=== PATIENT | male | born 1990 | race Caucasian/White ===

== ENCOUNTER 2020-09-17 15:21 | Emergency (ER) | payer BC, SELFPAY ==
[2020-09-17 15:23] VITALS: BP 150/88; PULSE 111; RESP 16; TEMP 36.8; O2SAT 97; BMI 26.6
[2020-09-17 15:25] VITALS: BP 150/88; PULSE 111; RESP 16; TEMP 36.8; O2SAT 97
--- NOTE | 2020-09-17 16:07 | EX.ED.DYSGE1 ---
HPI History of Present Illness Chief Complaint: Abscess Informant: patient Narrative Narrative: Patient presents with an abscess of the right third finger. Patient states that 7 days ago he had a small bump near the long fingers volar aspect of the right He states he went to urgent care and was placed on Keflex. In the past couple days DIP joint. it has swollen significantly turned white with some surrounding erythema. He does not believe he would have had any foreign bodies there. He does not recall any type of work that would have resulted in a foreign body. He denies any significant medical problems. PFSH PFSH no medical history Home Medications cephalexin [Keflex] 500 mg PO TID 09/17/20 [History Last Taken Unknown] hydrocodone-acetaminophen 1 tab PO Q6H PRN PRN 3 Days #12 tablet 09/17/20 [Rx Last Taken Unknown] sulfamethoxazole-trimethoprim 1 tab PO BID #14 tablet 09/17/20 [Rx Last Taken Unknown] Allergy/AdvReac Type Severity Reaction Status Date / Time No Known Allergies Allergy Verified 09/17/20 15:22 no significant family history Surgical History History of appendectomy History of hernia repair Social History (Updated 09/17/20 @ 16:[address] Jarocho Yoo DO) Smoking Status: Light Smoker (<10/day) substance use type: does not use ROS ROS ED Constitutional Constitutional ED: Denies chills or weight loss Eyes Eyes: Denies change in vision or diplopia ENT ENT ED: Denies ear pain, rhinorrhea or sore throat Cardiovascular Cardiovascular: Denies chest pain, orthopnea, palpitations or racing heartbeat Respiratory/Chest Respiratory/Chest: Denies cough, dyspnea or orthopnea Gastrointestinal Gastrointestinal: Denies abdominal pain, diarrhea, nausea or vomiting Genitourinary Genitourinary ED: Denies dysuria, hematuria or urinary frequency Musculoskeletal Musculoskeletal: Denies arthralgias or myalgias Integumentary Reports abscess; Denies rash Neurologic Neurologic: Denies headache(s) or weakness Psychiatric Psychiatric: Denies anxiety, depression, suicidal ideation or suicidal thoughts Endocrine Endocrinology: Denies polydipsia, polyphagia or polyuria Allergic/Immunologic Allergic/Immunologic ED: Denies mouth swelling, tongue swelling or urticaria EXAM Physical Exam Const Vital Signs: 09/17/20 15:23 09/17/20 15:25 Temperature 98.2 F 98.2 F Temperature Source Temporal Temporal Pulse Rate 111 H 111 H Respiratory Rate 16 16 Blood Pressure 150/88 H 150/88 H Blood Pressure Mean 108 108 Pulse Ox 97 97 Oxygen Delivery Method Room Air Room Air Positive well nourished and well developed General Appearance ED: well developed HEENT Reports normocephalic, head/scalp atraumatic and moist mucous membranes Eyes PERRL and EOMs intact bilaterally Neck no lymphadenopathy, supple and no JVD Resp normal respiratory effort and clear to auscultation bilaterally Cardio regular rate, regular rhythm and no murmurs GI normal to inspection, nondistended, normoactive bowel sounds and non-tender Palpation: soft Back/Spine no CVA tenderness and normal ROM Extremity normal to inspection General Extremety ED: Negative for edema General Extremity: Negative for edema Neuro oriented x3 and CN's II-XII intact bilaterally Sensorium / Orientation: alert Motor Exam: strength 5/5 throughout Psych mental status grossly normal Mood & Affect: Negative for depressed or tearful Skin no rashes or lesions noted and no wounds Skin Narrative: Along the volar aspect of the right long fingers distal phalanx is a abscess measuring approximately 1 cm with minimal surrounding erythema the distal tip of the finger appears normal and the fat pad distally appears normal. On the dorsum the skin appears normal. There is no lymphangitic streaking. There is not any evidence of tenosynovitis. NVI Distally. MDM MDM MDM Narrative Medical decision making narrative: Patient underwent digital block using 1% lidocaine. After adequate anesthesia the abscess was washed with Betadine and allowed to dry. A cruciate incision was made over it with a large amount of pus expressed. This was sent for culture. After irrigating the wound with 200 cc of normal saline, a hard green ball approximately 2 to 3 mm wide was expressed from the wound. This was dissected and no obvious foreign body was seen but it was rather firm that needed to be cut with an 11 blade. Wound to be cleansed and dressed by nursing. I made to place him on Bactrim as well as Kennedy. He will follow up with orthopedics. Procedures Other Procedures Procedure(s): Discharge Plan Triage Chief Complaint: Abscess ED Provider: Jarocho Yoo Dx/Rx/DC Orders Clinical Impression: Cutaneous abscess of hand Instructions: ED Abscess Incision And Drainage Prescriptions: New hydrocodone-acetaminophen [hydrocodone-acetaminophen] 1 TABLET tablet 1 tab PO Q6H PRN PRN (Reason: Pain) 3 Days Qty: 12 RF: 0 sulfamethoxazole-trimethoprim [sulfamethoxazole-trimethoprim] 1 TABLET tablet 1 tab PO BID Qty: 14 RF: 0 No Action cephalexin [Keflex] 500 mg Capsule 500 mg PO TID RF: 0 Primary Care Provider: Care Physician,No Primary Referrals: Parth Bryant DO [STAFF PHYSICIAN] - 2 Days for wound check Care Physician,No Primary [Primary Care Provider] - Disposition Disposition: Home, self care
[2020-09-17] MEDS: Lidocaine 1% (20 ml mdv) 20 ML Vial INFILT (16:55)
== END 2020-09-17 17:13 | disposition home or self-care (01) ==
PROVIDERS: Emergency Provider Emergency Medicine
DX: L02.511 Cutaneous abscess of right hand (principal)
CPT/HCPCS: 10060; 87070; 87077; 87186; 87205; 99283

== ENCOUNTER 2021-03-22 20:30 | Emergency (ER) | payer BC, SELFPAY ==
[2021-03-22 20:30] VITALS: BP 146/88; PULSE 100; RESP 18; TEMP 37.7; O2SAT 98; BMI 25.0
--- NOTE | 2021-03-22 20:55 | EDS_ITS ---
HPI History of Present Illness Chief Complaint: General Illness Detail of Chief Complaint: Fever and cough Informant: patient Narrative Narrative: Patient presents with fever and cough that started today. Patient complains of a productive cough. He denies sick contacts. Patient states that he has been at the hospital here with a baby who is been getting light therapy. Patient denies any other sick contacts. Patient did take Covid home test and it was positive. Patient complains of body aches as well as headache. Patient tells me is lost his sense of smell. Patient has not had the Covid vaccine. Prior similar symptoms: No PFSH PFSH Medical History (Updated 03/22/21 @ 21:[address] Rachel Arnett DO) Cough Medical History no medical history Home Medications NK 03/22/21 [History Last Taken Unknown] Allergy/AdvReac Type Severity Reaction Status Date / Time No Known Allergies Allergy Verified 03/22/21 20:33 Surgical History History of appendectomy History of hernia repair Social History (Updated 09/17/20 @ 16:[address] Jarocho Yoo DO) Smoking Status: Never smoker substance use type: does not use ROS ROS ED Constitutional Constitutional ED: Reports systems reviewed and no addt'l complaints, except as documented, chills and fever(s); Denies body ache(s) or change in weight Eyes Eyes: Denies acute decrease in peripheral vision, change in vision, double vision or loss of vision ENT ENT ED: Reports none and sore throat; Denies ear pain, lip swelling, loss taste/smell, neck pain or otalgia Cardiovascular Cardiovascular: Reports none; Denies abdominal pain, chest pain with activity, leg edema, lightheadedness, palpitations, rapid heart rate or syncope Respiratory/Chest Respiratory/Chest: Reports none, cough and sputum; Denies change in mental status, dry cough, dyspnea, hemoptysis, shortness of breath at rest or shortness of breath with exertion Gastrointestinal Gastrointestinal: Reports none; Denies abdominal pain, change in stool character, diarrhea, hematemesis, hematochezia, melena, rectal bleeding or vomiting Genitourinary Genitourinary ED: Reports none; Denies abdominal discomfort, anuria, dysuria, genital pain or polyuria Musculoskeletal Musculoskeletal: Reports none; Denies arthralgias, back pain, difficulty walking, extremity pain, muscle weakness or myalgias Integumentary Reports none; Denies abscess or rash Neurologic Neurologic: Reports none; Denies abnormal gait, confusion, focal weakness, frequent falls, headache(s), loss of vision, numbness, paresthesias, radicular p ain, vertigo or weakness Psychiatric Psychiatric: Reports systems reviewed and no addt'l complaints, except as documented and none; Denies behavioral changes, confusion, difficulty concentrating, hallucinations, suicidal ideation, tactile hallucinations or visual hallucinations Endocrine Endocrinology: Denies none, cold intolerance, excessive sweating, fatigue or heat intolerance Hematologic/Lymphatic Hematologic/Lymphatic: Reports none; Denies anemia, easy bleeding or easy bruising Allergic/Immunologic Allergic/Immunologic ED: Denies as per HPI, none, lip swelling, mouth swelling, throat swelling, tongue swelling or hives EXAM Physical Exam Const Vital Signs: 03/22/21 20:30 03/22/21 21:02 Temperature 99.9 F H Temperature Source Oral Pulse Rate 100 Respiratory Rate 18 Respiratory Effort Normal Blood Pressure 146/88 H Blood Pressure Mean 107 Pulse Ox 98 Oxygen Delivery Method Room Air Positive well nourished and well developed General Appearance ED: well developed and NAD HEENT Reports TM's clear and moist mucous membranes normocephalic and atraumatic; Negative for trauma or tenderness Tympanic Membrane ED: Yes TM's clear Eyes PERRL and EOMs intact bilaterally General Eye ED: Negative for pale conjunctiva or scleral icterus Neck no lymphadenopathy, supple and no JVD General: Negative for tenderness Chest Wall inspection of chest normal and palpation of chest normal Chest: Negative for tenderness Resp normal respiratory effort and clear to auscultation bilaterally Effort and Inspection: Negative for respiratory distress or pain with movement Auscultation: Negative for rhonchi, wheezes or diminished lung sounds Cardio regular rate, regular rhythm, S1 normal heart sound, S2 normal heart sound and no murmurs Peripheral Pulses: pulses 2+ throughout GI normal to inspection, nondistended, normoactive bowel sounds, soft to palpation, non-tender, non-distended and no masses Back/Spine no CVA tenderness and no thoracic nor lumbar tenderness Extremity normal to inspection General Extremety ED: Negative for edema General Extremity: Negative for edema Neuro oriented x3, CN's II-XII intact bilaterally, no sensory deficits noted and gait normal Sensorium / Orientation: awake, alert, oriented to person, oriented to place and oriented to time Motor Exam: strength 5/5 throughout and strength abnormal Psych mental status grossly normal Skin no rashes or lesions noted and no wounds MDM MDM MDM Narrative Medical decision making narrative: COVID-19 test was positive. Patient will be discharged to home and advised to return if increasing shortness of breath or condition worsen anyway. Patient advised on fever control and hydration. Patient has a at home and he is advised to quarantine and not be in contact with the . Lab Data Attestation: I reviewed the patient's lab results. Radiography Diagnostic Testin view chest x-ray obtained interpreted by myself as no acute disease process. Official report pending from radiology. Discharge Plan Triage Chief Complaint: General Illness ED Provider: Rachel Arnett Dx/Rx/DC Orders Clinical Impression: COVID-19 Instructions: Caring for Someone Who Has COVID-19 Prescriptions: No Action NK RF: 0 Primary Care Provider: Care Physician,No Primary Referrals: Jose Castaneda DO [STAFF PHYSICIAN] - As Needed Care Physician,No Primary [Primary Care Provider] - Disposition Disposition: Home, Self Care
--- NOTE | 2021-03-22 21:20 | RAD_ITS ---
STUDY: X-RAY CHEST REASON FOR EXAM: Male, 30 years old. cough TECHNIQUE: AP COMPARISON: None. FINDINGS: The lungs are clear and expanded. There is no demonstrated pleural abnormality. Normal size heart. Normal mediastinum and veronica. Normal visualized pulmonary arteries. Normal visualized aortic arch and descending thoracic aorta. Normal visualized thoracic spine. Normal visualized ribs, clavicles, and shoulders. There is no demonstrated abnormality of the visualized soft tissue structures of the upper abdomen. RAD/Chest 1 View IMPRESSION: Nonacute portable x-ray examination of the chest. Electronically Signed: Irwin Wells MD ([place]) at 21:36 EST , Service support ,
[2021-03-22 22:02] VITALS: O2SAT 98
== END 2021-03-22 22:02 | disposition home or self-care (01) ==
PROVIDERS: Emergency Provider Emergency Medicine
DX: U07.1 COVID-19 (principal)
CPT/HCPCS: 71045; 87426; 99282

== ENCOUNTER 2023-03-24 09:39 | Emergency (ER) | payer BC, SELFPAY ==
[2023-03-24 09:40] VITALS: BP 155/80; PULSE 75; RESP 16; TEMP 36.2; O2SAT 97; BMI 27.3
--- NOTE | 2023-03-24 09:50 | RAD_ITS ---
HISTORY: cough. TECHNIQUE: XR Chest 2 Views. COMPARISON: 03/22/2021. FINDINGS: CARDIOMEDIASTINAL BORDERS: Cardiac silhouette within normal limits in size. Mediastinal contour unremarkable. LUNGS: Mild linear right middle lobe opacity. PLEURA: No pleural effusion or pneumothorax seen. OSSEOUS STRUCTURES: Unremarkable. RAD/Chest PA and Lateral IMPRESSION: Mild right middle lobe atelectasis or inflammation. Electronically Signed: Amparo Solorzano MD at 10:27 EST ,
--- NOTE | 2023-03-24 09:53 | EX.ED.VIS.UR ---
HPI HPI - URI History of Present Illness Chief Complaint: Shortness of Breath Informant: patient Narrative Narrative: 3-week history of sore throat nonproductive cough with wheezing. History of asthma denies tobacco history. Using his [employer]ail[employer] last time this morning with wheezing. 1 week ago home COVID test was negative. Had COVID 2 years ago. No fevers. No recent travel or surgeries. No history of PE or DVT. Prior similar symptoms: Yes ROS ROS ED Constitutional Constitutional ED: Denies chills, fever(s) or sweats Eyes Eyes: Denies change in vision ENT ENT ED: Reports sore throat; Denies dysphagia Cardiovascular Cardiovascular: Denies chest pain, leg edema, palpitations or racing heartbeat Respiratory/Chest Respiratory/Chest: Reports cough and dyspnea; Denies dyspnea on exertion Gastrointestinal Gastrointestinal: Denies abdominal pain, diarrhea, nausea or vomiting Genitourinary Genitourinary ED: Denies dysuria, hematuria or urinary frequency Musculoskeletal Musculoskeletal: Denies back pain, extremity pain or neck pain Integumentary Denies rash or wounds Neurologic Neurologic: Denies headache(s), paresthesias or weakness PFSH PFSH Medical History Cough Home Medications albuterol sulfate 90 mcg/actuation aerosol inhaler (Ventolin HFA) 1 - 2 puff inhalation Q4H PRN PRN Wheezing ##1 03/24/23 [Rx Last Taken Unknown] cefdinir 300 mg capsule 300 mg PO BID #14 caps 03/24/23 [Rx Last Taken Unknown] prednisone 20 mg tablet 60 mg (3 x 20 mg) PO DAILY #12 TABLETS 03/24/23 [Rx Last Taken Unknown] Allergy/AdvReac Type Severity Reaction Status Date / Time No Known Allergies Allergy Verified 03/24/23 09:41 Surgical History History of appendectomy History of hernia repair Social History Smoking Status: Never smoker substance use type: does not use EXAM Physical Exam Const Vital Signs: 03/24/23 09:40 03/24/23 10:07 Temperature 97.2 F L Temperature Source Temporal Pulse Rate 75 Respiratory Rate 16 Respiratory Effort Short of Breath Respiratory Pattern Normal Blood Pressure 155/80 H Blood Pressure Mean 105 Pulse Ox 97 Oxygen Delivery Method Room Air Positive well nourished and well developed General Appearance ED: well developed and NAD HEENT Reports moist mucous membranes HEENT Narrative: No posterior pharyngeal erythema no exudate airway patent. Uvula midline. normocephalic and atraumatic Eyes PERRL, EOMs intact bilaterally and conjunctivae normal General Eye ED: Yes normal appearance of both eyes Neck no lymphadenopathy and supple General: Negative for tenderness Chest Wall Chest: Negative for tenderness Resp normal respiratory effort and normal air movement Effort and Inspection: symmetric chest movement; Negative for respiratory distress Cardio regular rate, regular rhythm and no murmurs Peripheral Pulses: pulses 2+ throughout GI normal to inspection, nondistended, normoactive bowel sounds and non-tender Palpation: Negative for guarding or rebound tenderness present Back/Spine no CVA tenderness and no thoracic nor lumbar tenderness Extremity normal to inspection General Extremety ED: Negative for edema or tenderness General Extremity: Negative for edema Neuro oriented x3 and no sensory deficits noted Sensorium / Orientation: awake and alert Skin no rashes or lesions noted and no wounds MDM MDM MDM Narrative Medical decision making narrative: Interventions / MDM: Differential diagnosis: Pneumonia, asthma exacerbation Diagnosis considered but do not suspect: Pulmonary embolism, however PERC criteria negative My EKG interpretation: N/A Imaging independently reviewed and interpreted by myself: 2 view chest x-ray: Right middle lobe infiltrate also read by radiology External documents reviewed: N/A Test considered but not ordered:N/A ED course: Patient vital signs stable, 97% room air. No respiratory distress. No active wheezing status post inhaler prior to arrival. With asthma history reported wheezing started on prednisone. Two-view chest x-ray ordered. 1030: Chest x-ray concerning for right middle lobe infiltrate also read by radiology. Started on antibiotics sent to his pharmacy along with continued steroids for his asthma and refill of his inhaler. Outpatient follow-up given with return precautions. All questions were answered. Re-evaluation: stable Disposition discussed with patient/family/significant other: Patient Case discussed with consulting clinician: N/A This note was generated with [employer] dictation software. It may contain incorrect words, spelling, and punctuation that were not noted in checking the note before signing. Radiography Diagnostic Testing: Clinical Impression(s) from Imaging Studies Chest X-Ray 03/24/23 09:50 IMPRESSION: Mild right middle lobe atelectasis or inflammation. Electronically Signed: Amparo Solorzano MD at 10:27 EST , Discharge Plan Triage Chief Complaint: Shortness of Breath ED Provider: Quoc Damon Dx/Rx/DC Orders Clinical Impression: Asthma exacerbation, Pneumonia Instructions: ED Pneumonia (Adult), Asthma Prescriptions: New prednisone 20 mg tablet 60 mg PO DAILY Qty: 12 0RF cefdinir 300 mg capsule 300 mg PO BID Qty: 14 0RF albuterol sulfate [Ventolin HFA] 90 mcg/actuation HFA aerosol inhaler 1 - 2 puff inhalation Q4H PRN PRN (Reason: Wheezing) Qty: 1 0RF Stand Alone Forms: ED Work / School Excuse Primary Care Provider: Care Physician,No Primary Referrals: Leela Smith MD [Med Staff - Business Planning Director] - 1 Week Care Physician,No Primary [Primary Care Provider] - Activity Restrictions/Additional Instructions: X-ray with small right middle lobe infiltrate. Take antibiotic as prescribed. Take steroids with your asthma history. Inhaler as needed. Follow-up as an outpatient. Return for reevaluation if any worsening symptoms. Disposition Disposition: Home, Self Care
[2023-03-24] MEDS: predniSONE 20 MG Tablet 60 MG PO (10:06)
[2023-03-24 10:53] VITALS: RESP 20
== END 2023-03-24 10:54 | disposition home or self-care (01) ==
PROVIDERS: Emergency Provider Emergency Medicine; Visit Provider Emergency Medicine
DX: J18.9 Pneumonia, unspecified organism (principal); J45.901 Unspecified asthma with (acute) exacerbation; Z90.49 Acquired absence of other specified parts of digestive tract
CPT/HCPCS: 71046; 99282

== ENCOUNTER 2024-12-15 20:15 | Emergency (ER) | payer BC, SELFPAY ==
[2024-12-15 20:15] VITALS: BP 133/95; PULSE 88; RESP 16; TEMP 37.3; O2SAT 98; BMI 27.7
--- NOTE | 2024-12-15 20:18 | ED.RN ---
PT. DECLINES BWC/FROI AT THIS TIME.
--- NOTE | 2024-12-15 22:33 | ED.RN ---
2231: NAME CALLED IN WAITING ROOM AND BATHROOM WITH NO ANSWER. LEFT WITHOUT BEING SEEN. REGISTRATION NOTIFIED
--- OUTSIDE RECORDS SUMMARY | 2024-12-15 22:40 | XMS RPT_ITS | CCD ---
Author Organization [facility] [employer] WORK[employer] [facility] Care Team Providers Care Cutting Table Operator First Name Role Phone Care Physician, No Primary Primary Care Provider Unavailable Care Physician, No Primary Referring Provider Un available Nitin Roberts Attending Provider Nitin Roberts Attending Unavailable Care Physician, No Primary Referring Unava ilable Care Physician, No Primary Primary Care Unava ilable Allergies Allergy Classification Reported Allergen(s) Allergy Type Date of Onset Reaction(s) Facility (1 source) Environmental Allergies: Uncoded; Translations: [Environmental Allergies: Uncoded] Propensity to adverse reactions (disorder) [facility] Repository Medications Current Medications Medication Drug Class(es) Dates Sig (Normalized) Sig (Original) [id number] 200 actuat albuterol 0.09 mg/actuat metered dose inhaler (2 sources) beta2-Adrenergic Agonist Start: 03-24-2023 Albuterol Sulfate (Ventolin Hfa) 90 mcg/actuation HFA aerosol inhaler Active 1 - 2 NMA INHALATION EVERY 4 HOURS NEEDED as needed for Wheezing March 24, 2023 1:00am Start: 03-24-2023 take 1 puff(s) by in halation every four hours as needed Albuterol Sulfate (Ventolin Hfa) 90 mcg/actuation HFA aerosol inhaler Active 1 - 2 PUFF INHALATION EVERY 4 HOURS NEEDED March 24, 2023 12:00am amoxicillin 875 mg / clavulanate 125 mg oral tablet (1 source) Penicillin-class Antibacterial Start: 09-13-2024 Amoxicillin-Pot Clavulanate 875-125 mg tablet Active 1 {tbl} PO TWICE A DAY September 13, 2024 12:00am benzonatate 200 mg oral capsule (1 source) Non-narcotic Antitussive Start: 09-13-2024 take 1 capsule by mouth three times daily as needed for cough Benzonatate 200 mg capsule Active 200 mg PO THREE TIMES A DAY as needed for cough September 13, 2024 12:00am diphenhydrAMINE hydrochloride 25 mg oral tablet (1 source) Histamine-1 Receptor Antagonist Start: 09-13-2024 take 1 tablet by mouth at bedtime as needed Diphenhydramine Hcl (Benadryl Allergy) 25 mg tablet Active 25 mg PO AT BEDTIME as needed September 13, 2024 12:00am 12 hr guaiFENesin 600 mg extended release oral tablet (1 source) Start: 09-13-2024 take 1 tablet by mouth every twelve hours as needed, then take 1 tablet by mouth every twelve hours as needed Guaifenesin (Mucinex) 600 mg tablet extended release 12hr Active 600 mg PO Q12H as needed September 13, 2024 12:00am Completed/Discontinued Medications Medication Drug Class(es) Dates Sig (Normalized) Sig (Original) acetaminophen 325 mg / HYDROcodone bitartrate 5 mg oral tablet (2 sources) Opioid Agonist Start: 09-17-2020 End: 02-27-2021 Hydrocodone-Acetami nophen 1 TABLET tablet Discontinued 1 {tbl} PO EVERY 6 HOURS NEEDED as needed for Pain 12 3 September 17, 2020 February 27, 2021 10:12am Start: 09-17-2020 End: 02-27-2021 take 1 tablet by mouth every six hours as needed Hydrocodone-Acetaminophen Discontinued 1 TABLET PO EVERY 6 HOURS NEEDED 12 3 September 17, 2020 February 27, 2021 9:12am cefdinir 300 mg oral capsule (2 sources) Cephalosporin Antibacterial Start: 03-24-2023 End: 09-13-2024 take 1 capsule by mouth twice daily Cefdinir 300 mg capsule Discontinued 300 mg PO TWICE A DAY March 24, 2023 1:00am September 13, 2024 9:16am cephalexin 500 mg oral capsule (2 sources) Cephalosporin Antibacterial Start: 09-17-2020 End: 02-27-2021 take 1 capsule by mouth three times daily Cephalexin (Keflex) 500 mg Capsule Discontinued 500 mg PO THREE TIMES A DAY September 17, 2020 12:00am February 27, 2021 10:12am predniSONE 20 mg oral tablet (2 sources) Start: 03-24-2023 End: 09-13-2024 take 3 tablets by mouth once daily Prednisone 20 mg tablet Discontinued 60 mg PO DAILY March 24, 2023 1:00am September 13, 2024 9:16am Start: 03-24-2023 take 60 mg by mouth once daily Prednisone Active 60 MG PO DAILY March 24, 2023 12:00am sulfamethoxazole 800 mg / trimethoprim 160 mg oral tablet (2 sources) Dihydrofolate Reductase Inhibitor Antibacterial, Sulfonamide Antimicrobial Start: 09-17-2020 End: 02-27-2021 Sulfamethoxazole-Trimethopri m 1 TABLET tablet Discontinued 1 {tbl} PO TWICE A DAY September 17, 2020 12:00am February 27, 2021 10:13am Start: 09-17-2020 End: 02-27-2021 take 1 tablet by mouth twice daily Sulfamethoxazole-Trimethoprim Discontinu ed 1 TABLET PO TWICE A DAY September 16, 2020 11:00pm February 27, 2021 9:13am Problems Problem Classification Problem Date Documented Da te Episodic/Chronic Asthma (2 sources) Exacerbation of asthma; Translations: [Unspecified asthma with (acute) exacerbation] 03-24-2023 Chronic Other lower respiratory disease (1 source) Dyspnea; Translations: [Shortness of breath] 09-13-2024 Episodic Other upper respiratory infections (2 sources) Viral upper respiratory tract infection; Translations: [Acute upper respiratory infection, unspecified] 02-27-2021 Episodic Pneumonia (except that caused by tuberculosis or sexually transmitted disease) (2 sources) Pneumonia; Translations: [Pneumonia, unspecified organism] 03-24-2023 Episodic Skin and subcutaneous tissue infections (2 sources) Abscess of hand; Translations: [Cutaneous abscess of unspecified hand] 09-17-2020 Episodic Viral infection (2 sources) Disease caused by 2019-nCoV; Translations: [COVID-19] 03-22-2021 Episodic Results Test Name Value Interpretation Reference Range Facil ity Urgent Care Visit Reporton 0 09-13-2024 Urgent Care Visit Report [facility] [address], [address] [place], [place] [address] OFFICE VISIT Date of Service: 09/13/24 MR#: [id number] Acct: [id number] Name: NICOLLE FRY Rep #: [id number] : 1990 Provider: NIRAJ Kennedy Age/Sex: 33/M [place] [facility] [place] [facility] [place]: Signed Intake Vital Signs 03/24/23 09:40 09/13/24 09:21 Height 5 ft 7 in 5 ft 8 in Weight: 188 lb 2 oz BMI 28.5 BP 120/82 H Position Sitting Pulse 78 Temp 98.9 F Temp Source Oral Pulse Oximetry (%) 98 Oxygen Delivery Method room air Intake Visit Reasons: Cough Accompanied by: Allergies Environmental Allergies: Uncoded (seasonal) Allergy (Verified 09/13/24 09:16) Other Medications ???Medication ???Instructions ???Recorded ???Confirmed ???Type albuterol sulfate 90 mcg/actuation 1 - 2 puff inhalation Q4H PRN NC N 03/24/23 09/13/24 Rx aerosol inhaler (Ventolin HFA) Wheezing ##1 amoxicillin 875 mg-potassium 1 tab PO BID #20 tabs 09/13/24 Rx clavulanate 125 mg tablet benzonatate 200 mg capsule 200 mg PO TID PRN cough #20 caps 0 09/13/24 09/13/24 Rx diphenhydramine HCl 25 mg tablet 25 mg PO QHS PRN 09/13/24 09/13/24 History (Benadryl Allergy) guaifenesin 600 mg tablet, 600 mg PO Q12H PRN 09/13/24 History extended release 12 hr (Mucinex) Nurse's Note: Patient has a cough that has been going on for 3 weeks. Patient states its horsed and dry cough. Patient states his throat was swollen for a week and he had sinus drainage but that stopped 3 days ago. [facility] Medical History Cough Surgical History History of appendectomy History of hernia repair Social History (Updated 09/13/24 @ 09:17 by Smitha Mujica MA) Smoking Status: Never smoker alcohol intake: current substance use type: does not use HPI HPI Details: NICOLLE DURHAM, is a 33 M who presents to the office today for [facility] at [facility] for approximately 3-week history of progressively worsening facial pressure/congestion with purulent postnasal drip/cough and bilateral ear pressure. Previous febrile episode in which was about 2 weeks ago (unknown Tmax) though no febrile episodes since; no complaints of chills, myalgias, fatigue, runny nose, or nausea/vomiting/diarrh ea. No complaints of chest pain/shortness of breath/dyspnea on exertion. No close contacts with similar complaints. No other associated symptoms and no other alleviating/aggravatin g factors. ROS Const Constitutional: No other (as above) Exam Const General: cooperative, healthy appearing and no acute distress Nutritional Appearance: average body habitus Orientation: alert, awake and oriented x3 HENMT Head: normal to inspection Ears: hearing grossly normal bilaterally, external ears normal, TM's normal bilaterally and EAC's normal Nose: external nose normal, nares normal, septum normal and no nasal discharge Face and sinus: normal facial exam, sinuses nontender (Though left maxillary fullness to palpation) and face symmetric Mouth: oral mucosae normal, lip normal, tongue normal and oropharynx normal Throat: posterior oropharynx normal, tonsils normal, uvula midline and postnasal drainage (scant amount purulent) Eyes General: appearance normal, both eyes and all related structures Neck Neck: normal visual inspection, full ROM, no meningeal signs, supple and lymphadenopathy (L>R anterior cervical lymph node swelling/tender to palpation) Neck mass: No Thyroid: thyroid normal Chest Chest palpation inspection: normal inspection of the chest Resp Effort Inspection: normal respiratory effort and able to speak in complete sentences, with moist nonproductive cough in office today Auscultation: Bilateral: Clear to Auscultation Cardio Palpation: normal PMI Rate: regular rate Rhythm: regular rhythm Heart Sounds: S1 normal, S2 normal, no gallops, no murmurs and no rubs Pulses: radial pulses present GI Inspection: normal to inspection Skin General: no rashes or lesions noted Neuro General: patient alert, patient awake and patient oriented x3 Cognition: normal cognition Speech: speech normal Psych Appearance: grossly normal Mental Status: mental status grossly normal Mood: congruent mood Affect: normal affect Speech and Movement: speech and movement normal Attitude: cooperative Diagnoses Acute maxillary sinusitis, unspecified J01.00 Acute bronchitis, unspecified J20.9 Assessment and Plan Assessment and Plan (1) Acute maxillary sinusitis, unspecified: Status: Acute (2) Acute bronchitis, unspecified: Status: Acute Plan: Augmentin and benzonatate as prescribed today. Supportive measures as in (more content not included)... Normal [facility] Vital Signs Date Time Vital Sign Value Performing Clinician Sheng frias 09-13-2024 09:21-0400 Body height 172.72 cm No Primary Care Physician [facility] 09-13-2024 09:21-0400 Body mass index (BMI) [Ratio] 28.5 kg/m2 No Primary Care Physician [facility] 09-13-2024 09:21-0400 Body temperature 98.9 [degF] No Primary Care Physician [facility] 09-13-2024 09:21-0400 Body weight 85.33 kg No Primary Care Physician [facility] 09-13-2024 09:21-0400 Diastolic blood pressure 82 mm[Hg] No Primary Care Physician [facility] 09-13-2024 09:21-0400 Heart rate 78 /min No Primary Care Physician [facility] 09-13-2024 09:21-0400 SaO2% (BldA) [Mass fraction] 98 % No Primary Care Physician [facility] 09-13-2024 09:21-0400 Systolic blood pressure 120 mm[Hg] No Primary Care Physician [facility] 03-24-2023 10:53-0500 Respiratory rate 20 /min [facility] 03-24-2023 09:40-0500 Body height 170.18 cm [facility] 03-24-2023 09:40-0500 Body mass index (BMI) [Ratio] 27.3 kg/m2 [facility] 03-24-2023 09:40-0500 Body temperature 97.2 [degF] [facility] 03-24-2023 09:40-0500 Body weight 79.12 kg [facility] 03-24-2023 09:40-0500 Diastolic blood pressure 80 mm[Hg] [facility] 03-24-2023 09:40-0500 Heart rate 75 /min [facility] 03-24-2023 09:40-0500 SaO2% (BldA) [Mass fraction] 97 % [place] [address]-22-2023 09:40-0500 Systolic blood pressure 155 mm[Hg] [facility] Encounters Encounter Date Encounter Type Care Provider Facility Start: 09-13-2024 End: 09-13-2024 Patient encounter procedure Nitin Segal [facility] Work Phone: Start: 09-13-2024 End: 09-13-2024 ambulatory No Primary Care Physician [facility] Work Phone: Start: 03-24-2023 End: 03-24-2023 Emergency department patient visit [facility] Work Phone: Procedures Date Procedure Procedure Detail Performing Clinician Start: 03-24-2023 Plain chest X-ray Plan of Treatment Date Care Activity Detail Author Start: 03-24-2023 [facility] Patient Education ED Pneumonia ( Adult) Asthma [facility] Work Phone: Patient referral [facility] Work Phone: Payers Date Payer Category Payer Self-pay [id number] 2024 Unknown [id number] Unknown ANTHEM [id number] Unknown [id number] Social History Date Type Detail Facility Start: 03-24-2023 [facility] Start: 09-17-2020 Cigarettes [facility] Start: 1990 Sex Assigned At Male [facility] Start: 09-13-2024 [facility] Never [facility] (finding) [facility] Discharge summary Note Date & Type Note Facility Discharge summary Note Date/Time March 24, 2023 9:56am [facility] Medical Records Department [address] [place] [address] Emergency Department Summary 03/24/23 MR#: [id number] Acct: [id number] Name: NICOLLE FRY Rep #: [id number] : 1990 32 From: Quoc Kapadia PCP: Care Physician,No Primary Status :REG ER Location: ED HPI HPI - URI History of Present Illness Chief Complaint: Shortness of Breath Informant: patient Narrative Narrative: 3-week history of sore throat nonproductive cough with wheezing. History of asthma denies tobacco history. Using his Hailer last time this morning with wheezing. 1 week ago home COVID test was negative. Had COVID 2 years ago. No fevers. No recent travel or surgeries. No history of PE or DVT. Prior similar symptoms: Yes ROS ROS ED Constitutional Constitutional ED: Denies chills, fever(s) or sweats Eyes Eyes: Denies change in vision ENT ENT ED: Reports sore throat; Denies dysphagia Cardiovascular Cardiovascular: Denies chest pain, leg edema, palpitations or racing heartbeat Respiratory/Chest Respiratory/Chest: Reports cough and dyspnea; Denies dyspnea on exertion Gastrointestinal Gastrointestinal: Denies abdominal pain, diarrhea, nausea or vomiting Genitourinary Genitourinary ED: Denies dysuria, hematuria or urinary frequency Musculoskeletal Musculoskeletal: Denies back pain, extremity pain or neck pain Integumentary Denies rash or wounds Neurologic Neurologic: Denies headache(s), paresthesias or weakness PFSH PFSH Medical History Cough Home Medications albuterol sulfate 90 mcg/actuation aerosol inhaler (Ventolin HFA) 1 - 2 puff inhalation Q4H PRN PRN Wheezing ##1 03/24/23 [Rx Last Taken Unknown] cefdinir 300 mg capsule 300 mg PO BID #14 caps 03/24/23 [Rx Last Taken Unknown] prednisone 20 mg tablet 60 mg (3 x 20 mg) PO DAILY #12 TABLETS 03/24/23 [Rx Last Taken Unknown] Allergy/AdvReac Type Severity Reaction Status Date / Time No Known Allergies Allergy Verified 03/24/23 09:41 Surgical History History of appendectomy History of hernia repair Social History Smoking Status: Never smoker substance use type: does not use EXAM Physical Exam Const Vital Signs: 03/24/23 09:40 03/24/23 10:07 Temperature 97.2 F L Temperature Source Temporal Pulse Rate 75 Respiratory Rate 16 Respiratory Effort Short of Breath Respiratory Pattern Normal Blood Pressure 155/80 H Blood Pressure Mean 105 Pulse Ox 97 Oxygen Delivery Method Room Air Positive well nourished and well developed General Appearance ED: well developed and NAD HEENT Reports moist mucous membranes HEENT Narrative: No posterior pharyngeal erythema no exudate airway patent. Uvula midline. normocephalic and atraumatic Eyes PERRL, EOMs intact bilaterally and conjunctivae normal General Eye ED: Yes normal appearance of both eyes Neck no lymphadenopathy and supple General: Negative for tenderness Chest Wall Chest: Negative for tenderness Resp normal respiratory effort and normal air movement Effort and Inspection: symmetric chest movement; Negative for respiratory distress Cardio regular rate, regular rhythm and no murmurs Peripheral Pulses: pulses 2+ throughout GI normal to inspection, nondistended, normoactive bowel sounds and non-tender Palpation: Negative for guarding or rebound tenderness present Back/Spine no CVA tenderness and no thoracic nor lumbar tenderness Extremity normal to inspection General Extremety ED: Negative for edema or tenderness General Extremity: Negative for edema Neuro oriented x3 and no sensory deficits noted Sensorium / Orientation: awake and alert Skin no rashes or lesions noted and no wounds MDM MDM MDM Narrative Medical decision making narrative: Interventions / MDM: Differential diagnosis: Pneumonia, asthma exacerbation Diagnosis considered but do not suspect: Pulmonary embolism, however PERC criteria negative My EKG interpretation: N/A Imaging independently reviewed and interpreted by myself: 2 view chest x-ray: Right middle lobe infiltrate also read by radiology External documents reviewed: N/A Test considered but not ordered:N/A ED course: Patient vital signs stable, 97% room air. No respiratory distress. No active wheezing status post inhaler prior to arrival. With asthma history reported wheezing started on prednisone. Two-view chest x-ray ordered. 1030: Chest x-ray concerning for right middle lobe infiltrate also read by radiology. Started on antibiotics sent to his pharmacy along with continued steroids for his asthma and refill of his inhaler. Outpatient follow-up given with return precautions. All questions were answered. Re-evaluation: stable Disposition discussed with patient/family/significant other: Patient Case discussed with consulting clinician: N/A This note was generated with [employer] dictation software. It may contain incorrectwords, spelling, and punctuation that were not noted in checking the note beforesigning. Radiography Diagnostic Testing: Clinical Impression(s) from Imaging Studies Chest X-Ray 03/24/23 09:50 IMPRESSION: Mild right middle lobe atelectasis or inflammation. Electronically Signed: Amparo Solorzano MD at 10:27 EST , Discharge Plan Triage Chief Complaint: Shortness of Breath ED Provider: Quoc Damon Dx/Rx/DC Orders Clinical Impression: Asthma exacerbation, Pneumonia Instructions: ED Pneumonia (Adult), Asthma Prescriptions: New prednisone 20 mg tablet 60 mg PO DAILY Qty: 12 0RF cefdinir 300 mg capsule 300 mg PO BID Qty: 14 0RF albuterol sulfate [Ventolin HFA] 90 mcg/actuation HFA aerosol inhaler 1 - 2 puff inhalation Q4H PRN PRN (Reason: Wheezing) Qty: 1 0RF Stand Alone Forms: ED Work / School Excuse Primary Care Provider: Care Physician,No Primary Referrals: Leela Smith MD [Med Staff - Street Vendor] - 1 Week Care Physician,No Primary [Primary Care Provider] - Activity Restrictions/Additional Instructions: X-ray with small right middle lobe infiltrate. Take antibiotic as prescribed. Take steroids with your asthma history. Inhaler as needed. Follow-up as an outpatient. Return for reevaluation if any worsening symptoms. Disposition Disposition: Home, Self Care What to do if you have Problems For any increased pain, shortness of breath, bleeding, nausea or vomiting, chestpain, or any unexpected problems, contact your Primary Care Provider. Call [facility] ([phone]) or report to the closest Emergency Room. Call 911 if necessary. 03/24/23 1052 <Electronically signed by Quoc Kapadia> Cosigner Signature (if applicable): CC: No Primary Care Physician ~ Signed [facility] Work Phone: Evaluation note Note Date & Type Note Facility Evaluation note No assessment information availa ble [facility] Work Phone: Hospital Discharge instructions Note Date & Type Note Facility Hospital Discharge instructions Additional Instructions X-ray with small right middle lobe infiltrate. Take antibiotic as prescribed. Take steroids with your asthma history. Inhaler as needed. Follow-up as an outpatient. Return for reevaluation if any worsening symptoms. [facility] Work Phone: Reason for referral (narrative) Note Date & Type Note Facility Reason for referral (narrative) No reason for referral information available [facility] Work Phone: Chief Complaint and Reason for Visit Chief Complaint SOB Chief Complaint Admit Date Cough September 13, 2024 8:54a m Advance Directives No Advanced Directives Records Found Advance Directive Response Recorded Date/ Time Living Will No March 24 023 10:08am Power of Music Intern No March 24, 2023 10:08am Summary Purpose Family History No Family History Records Found Additional Source Comments Care Teams (unrecognized sec tion and content) Team Status: Active Member Role Status Dates No Primary Care Physician Primary Care Provider Active Team Status: Inactive Member Role Status Dates No Primary Care Physician Primary Care Provider Active Dr. Quoc Damon , DO Emergency Provider Active Team Status: Inactive Member Role Status Dates No Primary Care Physician Primary Care Provider Active Start: September 13, 2024 End: September 13, 2024 No Primary Care Physician Referring Provider Active Start: September 13, 2024 End: September 13, 2024 Nitin Segal PA, PA Attending Provider Active Start: September 13, 2024 End: September 13, 2024 Goals (unrecognized section and content) Goals may be documented in a n alternate sectionGoals may be documented in an alternate section (unrecognized sect ion and content) No Status Records Found INFORMATION SOURCE (unrecogn ized section and content) DATE CREATED AUTHOR 09/14/2024 [facility] FOR RECORDS PERTAINING TO PATIENTS WHO ARE OR HAVE BEEN ENROLLED IN A CHEMICAL DEPENDENCY/SUBSTANCEABUSE PROGRAM, SOME INFORMATION MAY BE OMITTED. This clinical summary was aggregated from multiple sources. Caution should be exercised in using it in the provision of clinical care. This summary normalizes information from multiple sources, and as a consequence, information in this document may materially change the coding, format and clinical context of patient data. In addition, data may be omitted in some cases. CLINICAL DECISIONS SHOULD BE BASED ON THE PRIMARY CLINICAL RECORDS. [facility] [employer] [facility]. provides no warranty or guarantee of the accuracy or completeness of information in this document.
== END 2024-12-15 22:31 | disposition left against medical advice (07) ==
LOC: ED 22:38
DX: Z53.21 Procedure and treatment not carried out due to patient leaving prior to being seen by health care provider (principal)

== ENCOUNTER 2024-12-16 15:58 | Emergency (ER) | payer BC, SELFPAY ==
[2024-12-16 15:59] VITALS: BP 133/90; PULSE 81; RESP 16; TEMP 36; O2SAT 99; BMI 28.3
--- OUTSIDE RECORDS SUMMARY | 2024-12-16 16:43 | XMS RPT_ITS | CCD ---
Author Organization [facility] Inform ion Partnership [facility] Care Team Providers Care Perforating Machine Operator Name Role Phone Care Physician, No Primary Primary Care Provider Unavailable Care Physician, No Primary Referring Provider Un available Ntiin Roberts Attending Provider Nitin Roberts Attending Unavailable Care Physician, No Primary Referring Unava ilable Care Physician, No Primary Primary Care Unava ilable Provider, Ed Physician Emergency Provider Jose hutchinson Allergies Allergy Classification Reported Allergen(s) Allergy Type Date of Onset Reaction(s) Facility (1 source) Environmental Allergies: Uncoded; Translations: [Environmental Allergies: Uncoded] Propensity to adverse reactions (disorder) [facility] Repository Medications Current Medications Medication Drug Class(es) Dates Sig (Normalized) Sig (Original) [id number] 200 actuat albuterol 0.09 mg/actuat metered dose inhaler (3 sources) beta2-Adrenergic Agonist Start: 03-24-2023 Albuterol Sulfate [...] mg / clavulanate 125 mg oral tablet (2 sources) Penicillin-class Antibacterial Start: 09-13-2024 Amoxicillin-Pot Clavulanate 875-125 mg tablet Active 1 {tbl} PO TWICE A DAY September 13, 2024 12:00am benzonatate 200 mg oral capsule (2 sources) Non-narcotic Antitussive Start: 09-13-2024 take 1 capsule by mouth three times daily as needed for cough Benzonatate 200 mg capsule Active 200 mg PO THREE TIMES A DAY as needed for cough 20 0 September 13, 2024 12:00am diphenhydrAMINE hydrochloride 25 mg oral tablet (2 sources) Histamine-1 Receptor Antagonist Start: 09-13-2024 take 1 tablet by mouth at bedtime as needed Diphenhydramine Hcl (Benadryl Allergy) 25 mg tablet Active 25 mg PO AT BEDTIME as needed September 13, 2024 12:00am 12 hr guaiFENesin 600 mg extended release oral tablet (2 sources) Start: 09-13-2024 take 1 tablet by mouth every twelve hours as needed, then take 1 tablet by mouth every twelve hours as needed Guaifenesin (Mucinex) 600 mg tablet extended release 12hr Active 600 mg PO Q12H as needed September 13, 2024 12:00am Completed/Discontinued Medications Medication Drug Class(es) Dates Sig (Normalized) Sig (Original) acetaminophen 325 mg / HYDROcodone bitartrate 5 mg oral tablet (3 sources) Opioid Agonist Start: 09-17-2020 End: 02-27-2021 Hydrocodone-Acetami nophen 1 TABLET tablet Discontinued 1 {tbl} PO EVERY 6 HOURS NEEDED as needed for Pain 12 3 0 September 17, 2020 February 27, 2021 10:12am Cutaneous abscess of hand Cutaneous abscess of unspecified hand Start: 09-17-2020 End: 02-27-2021 take 1 tablet by mouth every six hours as needed Hydrocodone-Acetaminophen Discontinued 1 TABLET PO EVERY 6 HOURS NEEDED 12 3 September 17, 2020 February 27, 2021 9:12am cefdinir 300 mg oral capsule (3 sources) Cephalosporin Antibacterial Start: 03-24-2023 End: 09-13-2024 take 1 capsule by mouth twice daily Cefdinir 300 mg capsule Discontinued 300 mg PO TWICE A DAY 14 0 March 24, 2023 1:00am September 13, 2024 9:16am cephalexin 500 mg oral capsule (3 sources) Cephalosporin Antibacterial Start: 09-17-2020 End: 02-27-2021 take 1 capsule by mouth three times daily Cephalexin (Keflex) 500 mg Capsule Discontinued 500 mg PO THREE TIMES A DAY September 17, 2020 12:00am February 27, 2021 10:12am predniSONE 20 mg oral tablet (3 sources) Start: 03-24-2023 End: 09-13-2024 take 3 tablets by mouth once daily Prednisone 20 mg tablet Discontinued 60 mg PO DAILY March 24, 2023 1:00am September 13, 2024 9:16am Start: 03-24-2023 take 60 mg by mouth once daily Prednisone Active 60 MG PO DAILY March 24, 2023 12:00am sulfamethoxazole 800 mg / trimethoprim 160 mg oral tablet (3 sources) Dihydrofolate Reductase Inhibitor Antibacterial, Sulfonamide Antimicrobial [...] Problem Date Documented Da te Episodic/Chronic Asthma (3 sources) Exacerbation of asthma; Translations: [Unspecified asthma with (acute) exacerbation] 03-24-2023 Chronic Other lower respiratory disease (2 sources) Dyspnea; Translations: [Shortness of breath] 09-13-2024 Episodic Other upper respiratory infections (3 sources) Viral upper respiratory tract infection; Translations: [Acute upper respiratory infection, unspecified] 02-27-2021 Episodic Pneumonia (except that caused by tuberculosis or sexually transmitted disease) (3 sources) Pneumonia; Translations: [Pneumonia, unspecified organism] 03-24-2023 Episodic Skin and subcutaneous tissue infections (3 sources) Abscess of hand; Translations: [Cutaneous abscess of unspecified hand] 09-17-2020 Episodic Viral infection (3 sources) Disease caused by 2019-nCoV; Translations: [COVID-19] 03-22-2021 Episodic Results Test Name Value Interpretation Reference Range Facil ity Urgent Care Visit Reporton 0 09-13-2024 Urgent Care Visit Report [facility] [address], [address] [place], [place] [id number] OFFICE VISIT Date of Service: 09/13/24 MR#: [id number] Acct: [id number] Name: NICOLLE FRY Rep #: [id number] : 1990 Provider: NIRAJ Kennedy Age/Sex: 33/M Location: [facility] Status: Signed Intake Vital Signs 03/24/23 09:40 [...] 1 - 2 puff inhalation Q4H PRN NV N 03/24/23 09/13/24 Rx aerosol inhaler (Ventolin [...] drainage but that stopped 3 days ago. [facility] Medical History Cough Surgical History History of [...] as in (more content not included)... Normal [facility] Vital Signs Date Time Vital Sign Value Performing Clinician Faci lity 12-15-2024 20:15-0400 Body height 172.72 cm No Primary Care Physician [facility] 12-15-2024 20:15-0400 Body mass index (BMI) [Ratio] 27.7 kg/m2 No Primary Care Physician [facility] 12-15-2024 20:15-0400 Body temperature 99.2 [degF] No Primary Care Physician [facility] 12-15-2024 20:15-0400 Body weight 82.82 kg No Primary Care Physician [facility] 12-15-2024 20:15-0400 Diastolic blood pressure 95 mm[Hg] No Primary Care Physician [facility] 12-15-2024 20:15-0400 Heart rate 88 /min No Primary Care Physician [facility] 12-15-2024 20:15-0400 Respiratory rate 16 /min No Primary Care Physician [facility] 12-15-2024 20:15-0400 SaO2% (BldA) [Mass fraction] 98 % No Primary Care Physician [facility] 12-15-2024 20:15-0400 Systolic blood pressure 133 mm[Hg] No Primary Care Physician [facility] 09-13-2024 09:21-0400 Body height 172.72 cm No Primary Care Physician [facility] 09-13-2024 09:21-0400 Body mass index (BMI) [Ratio] 28.5 kg/m2 No Primary Care Physician [facility] 09-13-2024 09:21-0400 Body temperature 98.9 [degF] No Primary Care Physician [facility] 09-13-2024 09:21-0400 Body weight 85.33 kg No Primary Care Physician [facility] 09-13-2024 09:21-0400 Diastolic blood pressure 82 mm[Hg] No Primary Care Physician [facility] 09-13-2024 09:21-0400 Heart rate 78 /min No Primary Care Physician [facility] 09-13-2024 09:21-0400 SaO2% (BldA) [Mass fraction] 98 % No Primary Care Physician [facility] 09-13-2024 09:21-0400 Systolic blood pressure 120 mm[Hg] No Primary Care Physician [facility] 03-24-2023 10:53-0500 Respiratory rate 20 /min [facility] 03-24-2023 09:40-0500 Body height 170.18 cm [facility] 03-24-2023 09:40-0500 Body mass index (BMI) [Ratio] 27.3 kg/m2 [facility] 03-24-2023 09:40-0500 Body temperature 97.2 [degF] [facility] 03-24-2023 09:40-0500 Body weight 79.12 kg [facility] 03-24-2023 09:40-0500 Diastolic blood pressure 80 mm[Hg] [facility] 03-24-2023 09:40-0500 Heart rate 75 /min [facility] 03-24-2023 09:40-0500 SaO2% (BldA) [Mass fraction] 97 % [facility] 03-24-2023 09:40-0500 Systolic blood pressure 155 mm[Hg] [facility] Encounters Encounter Date Encounter Type Care Provider Facility Start: 12-15-2024 End: 12-15-2024 Emergency department patient visit No Primary Care Physician -Emergency Department Work Phone: Start: 09-13-2024 End: 09-13-2024 Patient encounter procedure Nitin Segal [facility] Work Phone: Start: 09-13-2024 End: 09-13-2024 ambulatory No Primary Care Physician [facility] Work Phone: Start: 03-24-2023 End: 03-24-2023 Emergency department patient visit [facility] Work Phone: Procedures Date Procedure Procedure Detail Performing Clinician Start: 03-24-2023 Plain chest X-ray Plan of Treatment Date Care Activity Detail Author Start: 03-24-2023 [facility] Patient Education ED Pneumonia ( Adult) Asthma [facility] Work Phone: Patient referral [facility] Work Phone: Payers Date Payer Category Payer Self-pay [id number] 2024 Unknown [id number] Unknown ANTHEM [id number] Unknown [id number] Social History Date Type Detail Facility [facility]: [facility] Start: 09-17-2020 Cigarettes [facility] Start: 1990 Sex Assigned At Male [facility] Start: 09-13-2024 [facility] (finding[facility] Discharge summary Note Date & Type Note Facility Discharge summary Note Date/Time March 24, 2023 9:56am [facility] Medical Records Department [address] [place] [address] Emergency Department Summary 03/24/23 MR#: [id number] Acct: [id number] Name: ONEYDA MARVANICOLLE REID Rep #: [id number] : 1990 32 From: Quoc Kapadia PCP: [...] clinician: N/A This note was generated with [employer] dictation software. It may contain incorrectwords, spelling, [...] Referrals: Leela Smith MD [Med Staff - Box Office Attendant] - 1 Week Care Physician,No Primary [Primary [...] problems, contact your Primary Care Provider. Call [facility] ([phone]) or report to the closest Emergency Room. Call 911 if necessary. 03/24/23 1052 <Electronically signed by Quoc Kapadia> Cosigner Signature (if applicable): CC: No Primary Care Physician ~ Signed [facility] Work Phone: Evaluation note Note Date & Type Note Facility Evaluation note No assessment information availa ble [facility] Work Phone: Hospital Discharge instructions Note Date & Type Note Facility Hospital Discharge instructions Additional Instructions X-ray with small right middle lobe infiltrate. Take antibiotic as prescribed. Take steroids with your asthma history. Inhaler as needed. Follow-up as an outpatient. Return for reevaluation if any worsening symptoms. [facility] Work Phone: Reason for referral (narrative) Note Date & Type Note Facility Reason for referral (narrative) No reason for referral information available [facility] Work Phone: Chief Complaint and Reason for Visit Chief Complaint SOB Chief Complaint Admit Date Cough September 13, 2024 8:54a m Chief Complaint Admit Date Cough September 13, 2024 8:54a m HEAD INJURY December 15, 2024 8: 15pm Advance Directives Advance Directive Response Recorded Date/ Time Living Will No March 24, 023 10:08am Power of Lead Electrical Engineer No March 24, 2023 10:08am Summary Purpose [...] September 13, 2024 End: September 13, 2024 NIRAJ Brito Attending Provider Active Start: September 13, 2024 End: September 13, 2024 Team Status: Active Member Role/Relationship Status Dates No Primary Care Physician Primary Care Provider Active Team Status: Inactive Member Role/Relationship Status Dates No Primary Care Physician Primary Care Provider Active Start: September 13, 2024 End: September 13, 2024 No Primary Care Physician Referring Provider Active Start: September 13, 2024 End: September 13, 2024 NIRAJ Brito Attending Provider Active Start: September 13, 2024 End: September 13, 2024 Team Status: Inactive Member Role/Relationship Status Dates No Primary Care Physician Primary Care Provider Active Start: December 15, 2024 End: December 15, 2024 Ed Physician Provider Emergency Provider Active Start: December 15, 2024 End: December 15, 2024 Goals (unrecognized section and content) Goals may be documented in a n alternate sectionGoals may be documented in an alternate sectionGoals may be documented in an alternate section (unrecognized sect ion and content) No Status Records Found INFORMATION SOURCE (unrecogn ized section and content) DATE CREATED AUTHOR 09/14/2024 [facility] FOR RECORDS PERTAINING TO PATIENTS WHO ARE [...] BE BASED ON THE PRIMARY CLINICAL RECORDS. [employer] [facility]. provides no warranty or guarantee of the accuracy or completeness of information in this document.
--- NOTE | 2024-12-16 16:57 | EX.ED.GENINJ ---
HPI History of Present Illness Chief Complaint: Head Injury Informant: patient Narrative Narrative: Patient 34-year-old male with no stated past medical history presented for head injury. Yesterday he was looking down and accidentally walked into the metal fork portion of the forklift. He had friends of his scalp right at his hairline in the center. He had no loss of consciousness but states he almost fell out. He had a crash down to the ground and everything seemed dazed for little bit. He continued to try to push through out the day and had 3 separate episodes of vomiting. He states he was feeling dizzy yesterday. He did have some swelling but improved with ice. Did not take any of her symptoms prior to arrival. He tried to come in last night and as his significant other was worried he could have a head bleed (she is a nurse) however when he came in it was quite busy so he did not get seen. He came back today. He notes today he just been feeling very groggy and sleepy. He has a headache that he states is around the back of his head. He denies any vision changes. Does have some mild photophobia. Denies associate numbness or tingling. Is on any blood thinners. Does have a prior history of a concussion. No nausea or vomiting today. States his vision feels fine. Denies take any medication prior to arrival. [facility] Medical History Cough Home Medications ?Medication ?Instructions ?Recorded ?Last Taken ?Type albuterol sulfate 90 mcg/actuation 1 - 2 puff inhalation Q4H PRN PRN 03/24/23 Unknown Rx aerosol inhaler (Ventolin HFA) Wheezing ##1 Allergy/AdvReac Type Severity Reaction Status Date / Time Environmental Allergies: Allergy Other Verified 12/16/24 15:59 Uncoded (seasonal) Family History no significant family his Surgical History History of appendectomy History of hernia repair Social History Smoking Status: Never smoker alcohol intake: current substance use type: does not use ROS ROS ED Constitutional Constitutional ED: Reports other Details: Fatigue ; Denies chills or fever(s) Eyes Eyes: Denies blurry vision ENT ENT ED: Denies rhinorrhea Cardiovascular Cardiovascular: Denies chest pain or palpitations Respiratory/Chest Respiratory/Chest: Denies dyspnea Gastrointestinal Gastrointestinal: Reports nausea and vomiting; Denies abdominal pain Musculoskeletal Musculoskeletal: Denies arthralgias, myalgias or neck pain Integumentary Denies rash Neurologic Neurologic: Reports headache(s); Denies paresthesias or weakness Hematologic/Lymphatic Hematologic/Lymphatic: Denies easy bleeding or easy bruising EXAM Physical Exam Const Vital Signs: 12/16/24 15:59 12/16/24 16:16 12/16/24 17:16 Temperature 96.8 F L 96.8 F L Temperature Source Temporal Pulse Rate 81 76 Respiratory Rate 16 16 Respiratory Effort Normal Non-Labored Respiratory Depth Normal Respiratory Pattern Normal Blood Pressure 133/90 H 134/88 H Blood Pressure Mean 104 103 Pulse Ox 99 99 Oxygen Delivery Method Room Air Room Air Positive well nourished and well developed General Appearance ED: well developed and NAD HEENT HEENT Narrative: Very subtle area of swelling of the left superior forehead just at the hairline. No fluctuance or palpable skull fracture present. No hemotympanum. No signs of basilar skull fracture. Nose: Negative for septum abnormal Eyes PERRL and EOMs intact bilaterally Neck full ROM General: Negative for tenderness Chest Wall inspection of chest normal Resp normal respiratory effort and clear to auscultation bilaterally Cardio regular rhythm Rate: regular rate GI normal to inspection, nondistended, normoactive bowel sounds and non-tender Back/Spine normal to inspection Extremity normal to inspection and full ROM Neuro oriented x3, CN's II-XII intact bilaterally, moves all extremities, no focal motor deficits and no sensory deficits noted Zaina Coma Scale: document GCS findings Spontaneous Obeys Commands Oriented 15 Sensorium / Orientation: alert Psych mental status grossly normal Skin no rashes or lesions noted and no wounds MDM MDM MDM Narrative Medical decision making narrative: Patient valuated for head injury that occurred yesterday. He did have 3 separate episodes of vomiting has had none today. Today he has been feeling groggy, but headache and then more sleepy. The injury itself was relatively low mechanism and he has a normal neurologic exam at this time. While he did have vomiting yesterday he is offered a head CT but he is had no further vomiting today. Patient declines head CT at this time I feel that he is overall low risk especially as again this occurred yesterday and he is greater than 24 hours out from the injury with no progressive/worsening vomiting. Patient is comfortable with this. Is given concussion instructions. Notes that all of his episodes of vomiting occurred when he was pushing himself. Is offered prescription for Zofran/nausea medicine but declines. Declines any ibuprofen or Tylenol in emergency room. Encouraged to take that as needed for headache. Given return precautions. Discharged home in stable condition. Discharge Plan Triage Chief Complaint: Head Injury ED Provider: Rolanda Marcus Dx/Rx/DC Orders Clinical Impression: Closed head injury, Concussion Instructions: ED Concussion, ED Head Injury (Adult) Prescriptions: No Action albuterol sulfate [Ventolin HFA] 90 mcg/actuation HFA aerosol inhaler 1 - 2 puff inhalation Q4H PRN PRN (Reason: Wheezing) Qty: 1 0RF Primary Care Provider: Care Physician,No Primary Referrals: Care Physician,No Primary [Primary Care Provider] - Mary Alice Segundo, RAILWAY TRACK WORKER-C [[facility]] - Activity Restrictions/Additional Instructions: Alternate ibuprofen and Tylenol for pain and symptoms. Make sure you are taking it easy and getting plenty of rest as well as drinking plenty of fluids. You have further episodes of vomiting, develop any new numbness or weakness especially one-sided the body over the other or have a loss of conscious please immediately return to the emergency room Print Language: Kyrgyz Disposition Disposition: Home, Self Care Discharge Date/Time: 12/16/24 17:17
[2024-12-16 17:16] VITALS: BP 134/88; PULSE 76; RESP 16; TEMP 36; O2SAT 99
== END 2024-12-16 17:17 | disposition home or self-care (01) ==
PROVIDERS: Emergency Provider Emergency Medicine; Visit Provider Emergency Medicine
DX: S06.0X0A Concussion without loss of consciousness, initial encounter (principal); W22.09XA Striking against other stationary object, initial encounter
CPT/HCPCS: 99282

== ENCOUNTER 2025-01-27 14:01 | Emergency (ER) | payer BC, SELFPAY ==
[2025-01-27 14:02] VITALS: BP 137/101; PULSE 99; RESP 18; TEMP 36.3; O2SAT 100; BMI 27.9
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
[2025-01-27] MEDS: Ketorolac 30 MG/ML Syringe IM (14:20)
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
[2025-01-27 16:55] VITALS: BP 135/90; PULSE 96; RESP 18; TEMP 36.6; O2SAT 98
== END 2025-01-27 16:56 | disposition home or self-care (01) ==
PROVIDERS: Emergency Provider Emergency Medicine; Visit Provider Emergency Medicine
DX: R07.81 Pleurodynia (principal); M54.2 Cervicalgia; V44.5XXA Car driver injured in collision with heavy transport vehicle or bus in traffic accident, initial encounter
CPT/HCPCS: 71250; 72125; 96372; 99282

== ENCOUNTER → 2025-03-23 | Outpatient (CLI) | payer BC, SELFPAY ==
[2025-03-23 15:43] LABS: Hematocrit 43.7 % (40-54); Hemoglobin 15.0 g/dL (13.0-16.5); Immature Granulocytes Count 0.080 X10^3/uL (0.0-0.0); Mean Corp Hgb Conc 34.3 g/dL (32-36); Mean Corpuscular Volume 88.3 fL (80-94); Mean Platelet Vol. 9.6 fl (6.2-12.0); NRBC Flagged by Analyzer 0 % (0-5); Platelet Count 380 K/mm3 (150-450); RBC Distribution Width CV 11.9 % (11.6-14.6); RBC Distribution Width SD 38.0 fl (35.1-43.9); Red Blood Count 4.95 M/mm3 (4.6-6.2); White Blood Count 10.7 K/mm3 (4.4-11.0)
[2025-03-23 17:41] LABS: Amylase 49 U/L (28-100); Lipase 24 U/L (13-75)
[2025-03-23 17:43] LABS: AST(SGOT) 30 U/L (<=37); Alanine Aminotransfer ALT/SGPT 92 U/L (<=46); Albumin, Serum 4.6 g/dL (3.5-5.0); Alkaline Phosphatase 70 U/L (40-129); Anion Gap 13 (5-15); BUN 20 mg/dL (4-19); BUN/Creat Ratio 25.5 RATIO (10-20); Calcium,Total 9.2 mg/dL (7.6-11.0); Carbon Dioxide 25.6 mmol/L (21.0-32.0); Chloride 101 mmol/L (98-108); Globulin 2.7 g/dL (2.2-4.2); Glucose 93 mg/dL (70-99); Potassium 3.4 mmol/L (3.3-5.1)
[2025-03-26 15:08] LABS: Immunoglobulin A 204 mg/dL (90-386)
== END | disposition home or self-care (01) ==
LOC: LAB 14:36
PROVIDERS: Referring Provider Physician Assistant; Visit Provider Physician Assistant
DX: R11.2 Nausea with vomiting, unspecified (principal)
CPT/HCPCS: 36415; 80053; 82150; 82784; 83516; 83690; 84443; 85025; 86255